=== PATIENT | female | born 1985 | race Caucasian/White ===

== ENCOUNTER 2016-06-23 14:46 | Emergency (ER) | payer BC ==
[~2016-06-23] VITALS: Ht 175.3 cm; Wt 100.0 kg
[2016-06-23 14:52] VITALS: Ht 175.3 cm; Wt 100.0 kg
[2016-06-23] MEDS ORDERED: MECL-103 PO (15:18)
[2016-06-23] MEDS ORDERED: PARO20TA43 PO (15:18)
[2016-06-23] MEDS ORDERED: MULT-933 PO (15:18)
[2016-06-23] MEDS ORDERED: NAPR220T PO (15:18)
[2016-06-23] MEDS ORDERED: PROP40TA7 PO (15:18)
--- OUTSIDE RECORDS SUMMARY | 2016-06-23 15:24 | XMS REPORT | Continuity of Care Document ---
Author Author Renea Meier Address Unknown Phone Unavailable Care Team Providers Care Car Wash Attendant Automatic Name Role Phone [employer] Unavailable Unavailable Problems Problem Status Onset Date Classification Date Reported Comments Source Screening for unspecified condition 11/20/2013 Diagnosis 11/24/2013 [facility] Headache associated with sexual activity 11/20/2013 Diagnosis 11/24/2013 [facility] Headache 11/20/2013 Diagnosis 11/24/2013 [facility] Urinary tract infection, site not specified 09/11/2013 Diagnosis 09/15/2013 [facility] Benign paroxysmal positional vertigo 07/24/2013 Diagnosis 07/28/2013 [facility] Dizziness and giddiness Diagnosis 07/28/2013 [facility] Syncope and collapse 2013 Diagnosis 07/10/2013 [facility] Other malaise and fatigue Diagnosis 07/10/2013 [facility] Routine general medical examination at a health care facility 07/06/2013 Diagnosis 07/10/2013 [facility] Need for prophylactic vaccination and inoculation against Diptheria-tetanus- pertussis, combined [DTP] [DTaP] 07/06/2013 Diagnosis 01/2014 [facility] No data available for this section Problem 01/15/2014 [facility], [facility], [facility] Medications Allergies, Adverse Reactions, Alerts Substance Category Reaction Severity Reaction type Status Date Reported Comments Source NKA Assertion Drug allergy [facility], [facility] Immunizations Immunization Date Given Site Status Last Updated Comments Source No data available for this section No data available for this section [facility], [facility] Results Vital Signs Encounters Location Location Details Encounter Type Encounter Number Reason For Visit Attending Provider ADM Date DC Date Status Source [facility] [id number] Clinic ( Outpatient) [id number] Vickie Guy 07/06/2013 Active [facility] [id number] Vickie Malena 07/06/2013 07/07/2013 [facility] [id number] Clinic ( Outpatient) [id number] Vickie Malena 07/24/2013 Active [facility] [id number] Vickie Malena 07/24/2013 07/25/2013 [facility] [id number] Vickie Malena 09/11/2013 09/12/2013 [facility] [id number] Vickie Guy 11/20/2013 11/21/2013 [facility] [id number] Outpatient [id number] Vickie Malena 12/11/2013 12/11/2013 Active [facility], [facility]. [facility] Cancel/ No Show [id number] Vickie Malena 01/11/2014 01/11/2014 [facility] Procedures Procedure Code Date Perfomer Comments Source Cytopathology, cervical or vaginal (any reporting system), collected in preservative fluid, automated thin layer preparation; manual screening under physician supervision [id number] [facility] tubal ligation 04/01/2006 [facility] wisdom teeth extraction 04/2004 [facility] No data available for this section [facility] Plan of Care Social History Assessment and Plan Family History Value Date Source Advance Directives Order Name Results Value Date Source
--- NOTE | 2016-06-23 15:28 | NUR ---
RADIOLOGY RADIOLOGY IN ROOM FOR PORTABLE XRAYS
--- NOTE | 2016-06-23 15:43 | ERPDOC ---
Departure Disposition Decision Date: Jun 23, 2016 Disposition Decision Time: 15:43 (KASI NI APRN) Disposition: 01 DISCHARGED HOME, SELF-CARE Impression Impression (KASI NI APRN) Impression: Primary Impression: Finger sprain Encounter type: initial encounter Finger: little finger Sprain of finger site: metacarpophalangeal joint Laterality: right Qualified Codes: S63.656A - Sprain of metacarpophalangeal joint of right little finger, initial encounter Condition: Stable Seen By: Mid-level only (KASI NI APRN) Patient Instructions: Finger Sprain (ED) Problems/Meds/Labs Reviewed?: Yes Medications reviewed and manag: Yes (KASI NI APRN) Additional Instructions: Your hand/finger x-ray did not show any fractures. You may take OTC ibuprofen or Aleve for pain. Ice for first 24 hours as discussed and elevate to reduce swelling. Follow treatment plan. If symptoms are not improving in next week follow with your PCP for re- evaluation. Avoid any active that may re-injury your finger. Follow up care ordered?: Yes Mental Status: Alert, Oriented (KASI NI APRN) HPI General Chief Complaint: Lower Extremity Injury Stated Complaint: RIGHT HAND INJURY Time Seen by Provider: 15:11 Source: patient (KASI NI APRN) Time Seen by Provider: 15:11 (PRISCILA FOX DO) HPI Hand/Forearm Initial Comments 31-year-old female presents to ER with complaint of pain over distal 5th metacarpal on right hand. Patient states that she was squatted down to play with her dog and when getting up she fell forward landing on her right hand. "Right little finger bent back and I heard a pop". Patient has full ROM of little finger. Pain Scale: Now: 5/10 Location: right: 5th finger, hand Method of Injury: fell Associated Symptoms: DENIES: pain with extension, pain with flexion, pain with grasp, swelling (KASI NI APRN) Allergies: Coded Allergies: No Known Allergies (Unverified , 06/23/16) Past History Past Medical History Metabolic: hypertension Cardiac: DENIES: angina Respiratory: DENIES: asthma GI: DENIES: ulcers Female: DENIES: renal insufficiency Neurological: DENIES: seizures Musculoskeletal: DENIES: rheumatoid arthritis Psychological: DENIES: depression (NI,KASI A AIRCRAFT INSTRUMENT TESTER) Surgical History Reproductive/: tubal ligation (CANDICE NIS Job AIRCRAFT INSTRUMENT TESTER) Family History Family PMH: FOUND: other (noncontributory) (KASI NI AIRCRAFT INSTRUMENT TESTER) Social History Residence: home (KASI NI APRN) Review of Systems Constitutional Constitutional: DENIES: chills, dizziness, fever, weakness (CANDICE NIS A [employer] INSTRUMENT TESTER) Eyes General: DENIES: erythema, exudate Lids/Accessories: DENIES: erythema, swelling (KASI NI A AIRCRAFT INSTRUMENT TESTER) ENMT Ears: DENIES: pain Sinuses: DENIES: congestion, rhinorrhea Mouth/Throat: DENIES: sore throat (CANDICE NIS A AIRCRAFT INSTRUMENT TESTER) Cardiovascular Cardiac: DENIES: chest pain, murmur Rhythm/Rate: DENIES: palpitations (CANDICE NIS A AIRCRAFT INSTRUMENT TESTER) Pulmonary Respiratory: DENIES: cough, dyspnea (CANDICE NIS A AIRCRAFT INSTRUMENT TESTER) GI Upper Abdomen: DENIES: nausea, pain, vomiting Lower Abdomen: DENIES: diarrhea, pain (CANDICE NIS A AIRCRAFT INSTRUMENT TESTER) General: DENIES: pain (CANDICE NIS A AIRCRAFT INSTRUMENT TESTER) Musculoskeletal General: joint pain, see HPI, tenderness (CANDICE NIS A AIRCRAFT INSTRUMENT TESTER) Integumentary Skin: DENIES: color change, itching, rash (CANDICE NIS A AIRCRAFT INSTRUMENT TESTER) Neurological General: DENIES: ataxia, change in strength, numbness, paralysis/paresis, weakness (CANDICE NIS A AIRCRAFT INSTRUMENT TESTER) Psychiatric Psychiatric: DENIES: anxiety, depression, nervousness (CANDICE NIS A AIR[employer]FT INSTRUMENT TESTER) Exam General General Nourishment: well nourished, well developed, adult General Body Habitus: well groomed Vital Signs: Temperature: 97.0, Source: Oral, Heart Rate: 65, Respiratory Rate : 14, BP: 120/74, Pulse Oximetry: 98 Height (Feet): 5 Height (Inches): 9.00 (KASI NI AIRCRAFT INSTRUMENT TESTER) [employer] Hand/Forearm Hand/Forearm : Upper Extremity: Right Wrist: other, NOT FOUND: ROM intact, deformity, ecchymosis, erythema, snuff box tenderness, swelling, tender, thenar eminence tender Hand: tender (over distal 5th metacarpal), NOT FOUND: deformity, ecchymosis , erythema, swelling Fingers: cap refill <2sec ea digit, soft touch intact (good sensation on medial and lateral sides), NOT FOUND: deformity, ecchymosis, erythema, impaired abduction, impaired adduction, impaired extension, impaired flexion, impaired grasp, laceration, nail avulsion, rotational deformity, subungual hematoma, swelling, tender Radial Pulse: 2+ (KASI NI APRN) Eyes (brief) Eyes Brief: found: EOMI (KASI NI APRN) ENMT (brief) ENMT Brief: NOT FOUND: nasal exudate, nasal swelling (KASI NI APRN) Respiratory (brief) Respiratory Brief: FOUND: clear all carrion, equal bilaterally, tenderness ( KASI NI APRN) Cardiovascular (brief) Cardiac Brief: FOUND: regular rate, regular rhythm (KASI NI APRN) Integumentary (brief) Integumentary Brief: FOUND: dry, pink, warm (KASI NI APRN) Neurologic (brief) Neurological Brief: FOUND: motor-no gross deficits, sensory-no gross deficits ( KASI NI APRN) Neurologic RN Documented GCS Eye Opening: Verbal: Motor: Total: (KASI NI APRN) Psychiatric (brief) Psychiatric Brief: FOUND: alert, normal affect, oriented (KASI NI APRN ) Differential Diagnoses Considering: Dislocation, Fracture, Sprain, Strain (KASI NI APRN) Progress Progress Progress I discussed x-ray findings with patient, follow up with PCP as needed and return precautions which patient verbalized understanding. (KASI NI APRN) Xray Xray : Xray: Hand R Interpretation: Normal, Faxed Report (KASI NI APRN) KASI NI APRN Jun 23, 2016 15:43 PRISCILA FOX DO Jun 27, 2016 06:35
--- NOTE | 2016-06-23 16:10 | NUR ---
COMFORT ICE PACK PROVIDED FOR COMFORT
--- NOTE | 2016-06-23 16:30 | NUR ---
PROVIDER Rex NI APRN IN ROOM WITH PT
[2016-06-23 16:41] VITALS: BP 127/71; PULSE 71; RESP 16; TEMP 97; O2SAT 99
--- NOTE | 2016-06-23 16:41 | NUR ---
DISMISSAL DISMISSAL INSTRUCTIONS REVEIWED WITH PT AND MOTHER. NO FURTHER QUESTIONS AT THIS TIME. PT LEFT DEPARTMENT AMBUALTORY IN NO DISTRESS
--- NOTE | 2016-06-24 09:09 | DI ---
Indication: ITS.REASON: pain over 5th metacarpal PROCEDURE: HAND RIGHT 3 VIEW: Encounter: Initial Comparison: None Findings: There is no acute fracture, dislocation or malalignment identified. Chronic appearing deformity of the long finger distal phalanx tuft. There is a small lucency seen within the fifth metacarpal base on the PA view which is possibly artifactual. No definite cortical step-off to confirm an acute fracture. Impression: No acute osseous abnormality. If there is continued pain, follow-up radiographs in 10-14 days may be helpful to evaluate for signs of a healing fracture. There is a preliminary report by [facility] radiologic. .
== END 2016-06-23 16:41 | disposition home or self-care (01) ==
LOC: ED 14:46
DX: S63.656A Sprain of metacarpophalangeal joint of right little finger, initial encounter (principal); X50.9XXA Other and unspecified overexertion or strenuous movements or postures, initial encounter; Y93.89 Activity, other specified; Y92.9 Unspecified place or not applicable; Y99.8 Other external cause status